=== PATIENT | female | born 1970 | race Caucasian/White ===

== ENCOUNTER 2021-06-16 08:26 | Outpatient (CLI) | payer BC | END 2021-06-16 08:27 | disposition home or self-care (01) | LOC: CSHMRI 08:26 | PROVIDERS: ATTEND Nurse Practitioner Acute Care | DX: G35 Multiple sclerosis (principal); G95.9 Disease of spinal cord, unspecified; K22.9 Disease of esophagus, unspecified; M47.816 Spondylosis without myelopathy or radiculopathy, lumbar region; K80.20 Calculus of gallbladder without cholecystitis without obstruction | CPT/HCPCS: 70553; 72156; 72157; 72158 ==